=== PATIENT | female | born 1950 | race Caucasian/White ===

== ENCOUNTER → 2017-05-06 | Outpatient (CLI) | payer MEDICARE, MEDICAID ==
--- NOTE | 2017-05-06 11:04 | RADIOLOGY REPORT PS360 ---
EXAM: Barium swallow/esophagram. INDICATION: Dysphasia ORDERING PHYSICIAN: Wilver Almanza MD PATIENT AGE: 66 years COMPARISON: None TECHNIQUE: In the upright position the patient was observed to swallow barium in both the AP and lateral view. The cervical esophagus was examined under fluoroscopy with images obtained. The patient was then placed prone in the right anterior oblique position and was observed to swallow barium with Valsalva technique . FLUOROSCOPY TIME: 1 minute and 8 seconds FINDINGS: There was no evidence of aspiration. There was normal peristalsis. No filling defects or mucosal abnormalities. No masses or strictures. There is mild spasm of the cricopharyngeus muscle which does resolve. No evidence of hiatal hernia. No erosive lesions. No esophageal deviation IMPRESSION: Negative barium swallow.
--- NOTE | 2017-05-06 11:08 | RADIOLOGY REPORT PS360 ---
CHEST(2 VIEWS-NOT PORTABLE) HISTORY: DYSPHAGIA ORDERING PHYSICIAN: Wilver Almanza MD PATIENT AGE: 66 years COMPARISON: None available FINDINGS: The cardiomediastinal silhouette and pulmonary vascularity are within normal limits. There are atelectatic or fibrotic changes in the right perihilar region projecting along the anterior clear space inferiorly. Right hemidiaphragm is elevated anteriorly with increased density in the right infrahilar region probably due to vascular crowding. There is vague increased density along left heart border nonspecific and could represent summation density from pericardial fat pad. No obvious mediastinal mass. No acute bony anomalies. IMPRESSION: 1. Atelectatic or fibrotic change in the right perihilar region with elevated right hemidiaphragm. A central obstructing lesion could cause these findings. CT scan of the chest with contrast may be of further value clinically warranted 2. Nonspecific area of increased density along the left heart border which could be due to pericardial fat pad.
== END ==
LOC: RAD 09:32
DX: R13.10 Dysphagia, unspecified (principal)

== ENCOUNTER → 2017-05-12 | Outpatient (CLI) | payer MEDICARE, MEDICAID ==
[2017-05-12 14:25] LABS: BUN 19 mg/dL (7-18)
[2017-05-12 14:26] LABS: GFR (ESTIMATED) 37 ML/MIN (59-)
[2017-05-12 14:42] LABS: LYMPH # 1.3 K/mm3 (0.7-4.5); LYMPH % 30.3 % (10-50.0)
[2017-05-12 14:44] LABS: HEMOGLOBIN 11.8 g/dL (12.2-16.2)
[2017-05-13 08:45] LABS: Vitamin D, 25-Hydroxy 26.6 ng/mL (30.0-100.0)
[2017-05-13 09:38] LABS: Iron 141 ug/dL (27-139); Iron Saturation 50 % (15-55); UIBC 142 ug/dL (118-369)
[2017-05-13 12:36] LABS: Immunoglobulin A, Qn 725 mg/dL (87-352); Immunoglobulin G, Qn 1283 mg/dL (700-1600); Immunoglobulin M, Qn 97 mg/dL (26-217)
== END ==
LOC: CARL-LAB 08:38
PROVIDERS: Internal Medicine Nephrology
DX: Q61.3 Polycystic kidney, unspecified (principal); E55.9 Vitamin D deficiency, unspecified; N18.3 Chronic kidney disease, stage 3 (moderate); D63.1 Anemia in chronic kidney disease